=== PATIENT | male | born 1955 | race Caucasian/White ===

== ENCOUNTER 2016-07-26 11:23 | Inpatient (IN) | payer OTHER ==
[~2016-07-26] VITALS: Ht 175.3 cm; Wt 62.3 kg
[2016-07-26] VITALS (9 sets, daily range): BP systolic 94–161; BP diastolic 66–82; PULSE 84–116; RESP 18–20; TEMP 97–98; O2SAT 92–100
[~2016-07-26 11:23] MED LIST: CLON.2 PO; CORE25TA PO; CREON PO; LANTUSP SQ; LISI-586 PO; LOVA20TA PO; OMEP20CA5 PO; TAB-TAB PO; [UNRECOGNIZED DRUG - OTHER] SUBD
[2016-07-26] MEDS ORDERED: SODIUM CHLOR 0.9% 1000 ML INJ 1,000 ML IV SCH (11:43)
[2016-07-26] MEDS ORDERED: ONDANSETRON HCL 4 MG/2 ML VIAL IVP ONE (11:45)
--- NOTE | 2016-07-26 11:48 | PD ---
HPI Chief Complaint: GI Complaint Time Seen by Provider: 11:44 Travel History International Travel<30 days: No Contact w/Intl Traveler<30days: No Traveled to known affect area: No History of Present Illness HPI 61-year-old male presents to the emergency department for evaluation of nausea, vomiting, abdominal pain for 3 days. 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 He also states that part of his diaphragm is removed and reconstructed. He says is due to chronic pancreatitis. Patient reports epigastric and right upper quadrant pain at this time. He states this occurred last week and, per resolved after 1 day. He states he is unable take any of his medications. Patient denies any chest pain or shortness of breath. He does have a history of pneumothorax in January. Patient denies any diarrhea or constipation. Denies any blood in his stool. Denies any dark tarry stools. PFSH Past Medical History Arthritis: No Asthma: No Blood Disorders: No Heart Rhythm Problems: No Cancer: No Cardiac Catheterization: Yes Cardiovascular Problems: Yes (chf) High Cholesterol: No Chemotherapy: No Chest Pain: No Congestive Heart Failure: Yes (SEPTEMBER 2006) COPD: No Cerebrovascular Accident: No Diabetes: Yes Patient Takes Glucophage: No Diminished Hearing: No Endocrine: Yes Gastrointestinal Disorders: Yes (PEPTIC ULCER 1998) GERD: No Genitourinary: No Headaches: No Hepatitis: No Hiatal Hernia: No Hypertension: Yes Immune Disorder: No Kidney Stones: No Medical other: No Musculoskeletal: No Neurologic: No Psychiatric: No Reproductive: No Respiratory: No Immunizations Current: No Migraines: No Myocardial Infarction: No Pancreatitis: Yes Radiation Therapy: No Renal Failure: No Seizures: No Sleep Apnea: No Thyroid Disease: No Ulcer: Yes (1998) Past Surgical History Abdominal Surgery: Yes (TRIPLE ABD. HERNIA SURGERY WITH SCREEN 2007) AICD: No Appendectomy: No Cardiac Surgery: Yes (HEART CATH 2005) Cholecystectomy: No Ear Surgery: No Endocrine Surgery: No Eye Surgery: No Genitourinary Surgery: No Gynecologic Surgery: No Joint Replacement: No Neurologic Surgery: No Oral Surgery: Yes (TONSIL WHEN CHILD) Pacemaker: No Thoracic Surgery: No Tonsillectomy: Yes Other Surgery: Yes Social History Alcohol Use: Yes Tobacco Use: Yes (1 PPD) Substance Use: No Allergies-Medications (Allergen,Severity, Reaction): Coded Allergies: Penicillin (Verified Allergy, Severe, Hives, 07/26/16) Reported Meds & Prescriptions Reported Meds & Active Scripts Active Reported [Eucenicea] Vitamin B-1 (Thiamine HCl) 50 Mg Tab 50 Mg PO DAILY Vitamin C (Ascorbic Acid) 500 Mg Cap 500 Mg PO DAILY Multivitamin Adults (Multiple Vitamins W/ Minerals) 1 Tab 1 Tab PO DAILY Carvedilol 3.125 Mg Tab 3.125 Mg PO BID Creon (Amylase/Lipase/Protease) 24,000-76,000-120,000 Units Cap 1 Cap PO TIDPC Lisinopril-Hctz 20-12.5 Mg Tab 1 Tab PO DAILY Lovastatin 10 Mg Tab 10 Mg PO DAILY Review of Systems Except as stated in HPI: all other systems reviewed are Neg Physical Exam Narrative GENERAL: Well-developed well-nourished male patient, afebrile SKIN: Warm and dry. HEAD: Normocephalic. Atraumatic. EYES: No scleral icterus. No injection or drainage. NECK: Supple, trachea midline. No JVD or lymphadenopathy. CARDIOVASCULAR: Regular rate and rhythm without murmurs, gallops, or rubs. RESPIRATORY: Breath sounds equal bilaterally. No accessory muscle use. Lungs sounds clear to auscultation. GASTROINTESTINAL: Abdomen soft and nondistended. Patient has tenderness over RUQ, epigastric areas. MUSCULOSKELETAL: No cyanosis, or edema. BACK: Nontender without obvious deformity. No CVA tenderness. Data Data Last Documented VS Vital Signs Date Time Temp Pulse Resp B/P Pulse Ox O2 Delivery O2 Flow Rate FiO2 07/26/16 13:00 84 19 161/75 95 Room Air 07/26/16 12:10 2 07/26/16 11:26 98.0 Orders Complete Blood Count With Diff (07/26/16 11:43) Comprehensive Metabolic Panel (07/26/16 11:43) Lipase (07/26/16 11:43) Urinalysis - C+S If Indicated (07/26/16 11:43) Ct Abd/Pel W Iv Contrast(Rout) (07/26/16 11:43) Iv Access Insert/Monitor (07/26/16 11:43) Ecg Monitoring (07/26/16 11:43) Oximetry (07/26/16 11:43) Ondansetron Inj (Zofran Inj) (07/26/16 11:45) Sodium Chlor 0.9% 1000 Ml Inj (Ns 1000 M (07/26/16 11:43) Sodium Chloride 0.9% Flush (Ns Flush) (07/26/16 11:45) Chest, Single Ap (07/26/16 11:43) Blood Culture (07/26/16 12:39) Lactic Acid Sepsis Protocol (07/26/16 12:39) Vancomycin Inj (Vancomycin Inj) (07/26/16 12:39) Aztreonam Inj (Azactam Inj) (07/26/16 12:39) Metronidazole 500 Mg Inj (Flagyl 500 Mg (07/26/16 12:39) Sodium Chlor 0.9% 1000 Ml Inj (Ns 1000 M (07/26/16 12:45) Diphenhydramine Inj (Benadryl Inj) (07/26/16 13:00) Piperacil-Tazo 4.5 Gm Premix (Zosyn 4.5 (07/26/16 13:00) Metoclopramide Inj (Reglan Inj) (07/26/16 13:00) Morphine Inj (Morphine Inj) (07/26/16 13:00) Iohexol 350 Inj (Omnipaque 350 Inj) (07/26/16 13:21) Admit Order (Ed Use Only) (07/26/16 13:54) Consult Gastroenterology (07/26/16 ) Labs Laboratory Tests Test 07/26/16 07/26/16 07/26/16 12:09 13:15 13:25 White Blood Count 20.8 TH/MM3 Red Blood Count 3.84 MIL/MM3 Hemoglobin 12.4 GM/DL Hematocrit 37.0 % Mean Corpuscular Volume 96.5 FL Mean Corpuscular Hemoglobin 32.3 PG Mean Corpuscular Hemoglobin 33.4 % Concent Red Cell Distribution Width 13.8 % Platelet Count 256 TH/MM3 Mean Platelet Volume 9.3 FL Neutrophils (%) (Auto) 79.4 % Lymphocytes (%) (Auto) 6.7 % Monocytes (%) (Auto) 13.4 % Eosinophils (%) (Auto) 0.1 % Basophils (%) (Auto) 0.4 % Neutrophils # (Auto) 16.5 TH/MM3 Lymphocytes # (Auto) 1.4 TH/MM3 Monocytes # (Auto) 2.8 TH/MM3 Eosinophils # (Auto) 0.0 TH/MM3 Basophils # (Auto) 0.1 TH/MM3 CBC Comment AUTO DIFF Differential Comment AUTO DIFF CONFIRMED Sodium Level 125 MEQ/L Potassium Level 4.4 MEQ/L Chloride Level 86 MEQ/L Carbon Dioxide Level 27.9 MEQ/L Anion Gap 11 MEQ/L Blood Urea Nitrogen 26 MG/DL Creatinine 0.89 MG/DL Estimat Glomerular Filtration 87 ML/MIN Rate Random Glucose 172 MG/DL Calcium Level 8.9 MG/DL Total Bilirubin 0.5 MG/DL Aspartate Amino Transf 14 U/L (AST/SGOT) Alanine Aminotransferase 14 U/L (ALT/SGPT) Alkaline Phosphatase 132 U/L Total Protein 7.0 GM/DL Albumin 3.3 GM/DL Lipase 40 U/L Urine Color YELLOW Urine Turbidity CLEAR Urine pH 6.0 Urine Specific [place] 1.019 Urine Protein NEG mg/dL Urine Glucose (UA) NEG mg/dL Urine Ketones 40 mg/dL Urine Occult Blood NEG Urine Nitrite NEG Urine Bilirubin NEG Urine Urobilinogen 2.0 MG/DL Urine Leukocyte Esterase NEG Urine RBC LESS THAN 1 /hpf Urine Hyaline Casts 7 /lpf Urine Mucus FEW /lpf Microscopic Urinalysis Comment CULT NOT INDICATED Lactic Acid Level 1.2 mmol/L MDM Medical Decision Making Medical Screen Exam Complete: Yes Emergency Medical Condition: Yes Medical Record Reviewed: Yes Interpretation(s) Last Impressions Chest X-Ray 07/26/16 1143 Signed Impressions: Service Date/Time: Tuesday, July 26, 2016 12:07 - CONCLUSION: No acute disease. Gage Mcclain MD Abdomen/Pelvis CT 07/26/16 1143 Signed Impressions: Service Date/Time: Tuesday, July 26, 2016 13:14 - CONCLUSION: 1. Extensive postsurgical changes to the upper abdomen. 2. The stomach is abnormal with abnormal gastric wall thickening seen circumferentially with proximal gastric distention. Adjacent stranding and fluid suggest inflammatory process however malignancy is not excluded. 3. Atherosclerotic disease and mild ectasia of the infrarenal abdominal aorta. 4. Esophageal wall thickening seen circumferentially. Gage Mcclain MD Differential Diagnosis Pancreatitis versus diverticulitis versus bowel obstruction versus pneumothorax versus gastroenteritis Narrative Course 61-year-old male presents to the emergency department for evaluation of abdominal pain, vomiting for 3 days. EKG, chest x-ray ordered and pending. CBC , CMP, lipase are ordered and pending. CT abdomen/pelvis is ordered and pending. EKG shows SR, HR 90. CXR shows no acute disease. CBC shows leukocytosis 20.8, neutrophilia of 79.4%. CMP shows hyponatremia 125, glucose 172, alkaline phosphatase 132. Lipase is 40. UA is negative for acute infection. CT abdomen /pelvis shows 1. Extensive postsurgical changes to the upper abdomen. 2. The stomach is abnormal with abnormal gastric wall thickening seen circumferentially with proximal gastric distention. Adjacent stranding and fluid suggest inflammatory process however malignancy is not excluded. 3. Atherosclerotic disease and mild ectasia of the infrarenal abdominal aorta. 4. Esophageal wall thickening seen circumferentially. Due to elevated WBC of 20.8, blood cultures 2 and lactic acid are ordered. Patient reports PCN allergy was a rash as a child. Patient is given Benadryl 50 mg IV and Zosyn 4.5 gm IV. Gen. surgery and [facility] is paged for admission. Dr. Rose spoke to Dr. Jacinto who accepted admission. Dr. Rose also spoke with Dr. Serrano and GI. Sepsis Criteria SIRS Criteria (2 or more): Heart rate over 90, WBC > 26829, < 4000 or > 10% bands Sepsis Criteria (SIRS+source): Infect source susp/known Diagnosis Primary Impression: Sepsis Qualified Code: A41.9 - Sepsis, due to unspecified organism Additional Impression: Abdominal pain Qualified Code: R10.10 - Pain of upper abdomen Admitting Information Admitting Physician Requests: Admit Gin Noriega Jul 26, 2016 11:48
[2016-07-26] MEDS ORDERED: LISI20TA PO (12:16)
[2016-07-26] MEDS ORDERED: VITA50TA PO (12:16)
[2016-07-26] MEDS ORDERED: LISI10TA PO (12:16)
[2016-07-26] MEDS ORDERED: CREON24 PO (12:16)
[2016-07-26] MEDS ORDERED: MULT1TAB84 PO (12:16)
[2016-07-26] MEDS ORDERED: [UNRECOGNIZED DRUG - OTHER] (12:16)
[2016-07-26] MEDS ORDERED: LOVA10TA PO (12:16)
[2016-07-26] MEDS ORDERED: ASCO500C PO (12:16)
[2016-07-26] MEDS ORDERED: CARV3.12 PO (12:16)
[2016-07-26] MEDS ORDERED: AMLO5TAB2 PO (12:16)
--- NOTE | 2016-07-26 12:26 | RADRPT ---
EXAM DATE/TIME: 07/26/2016 12:07 [facility] COMPARISON: CHEST SINGLE AP, December 29, 2013, 14:32. INDICATIONS : Chest Pain MEDICAL HISTORY : None. SURGICAL HISTORY : None. ENCOUNTER: Initial ACUITY: 3 days PAIN SCORE: 5/10 LOCATION: Bilateral chest FINDINGS: Hyperinflation again seen. No consolidation or effusion. Borderline cardiomegaly. Osseous structures are intact. CONCLUSION: No acute disease. Gage Mcclain MD on July 26, 2016 at 12:23 Board Certified Radiologist. This report was verified electronically.
[2016-07-26 12:28] LABS: AUTOMATED NEUTROPHIL # 16.5 TH/MM3 (1.8-7.7); BASOPHIL # 0.1 TH/MM3 (0-0.2); BASOPHIL % 0.4 % (0.0-2.0); EOSINOPHIL % 0.1 % (0.0-4.0); LYMPH % 6.7 % (9.0-44.0); LYMPHOCYTE # 1.4 TH/MM3 (1.0-4.8); MEAN CELL VOLUME 96.5 FL (80.0-100.0); MEAN CORPUSCULAR HEMOGLOBIN 32.3 PG (27.0-34.0); MEAN CORPUSCULAR HGB CONC 33.4 % (32.0-36.0); MONO % 13.4 % (0.0-8.0); NEUT % 79.4 % (16.0-70.0); PLATELET COUNT 256 TH/MM3 (150-450); RED BLOOD COUNT 3.84 MIL/MM3 (4.50-5.90); RED CELL DISTRIBUTION WIDTH 13.8 % (11.6-17.2); WHITE BLOOD COUNT 20.8 TH/MM3 (4.0-11.0)
[2016-07-26 12:36] LABS: HEMO FLAGS AUTO DIFF
[2016-07-26] MEDS ORDERED: VANCOMYCIN INJ 1,000 MG in SODIUM CHLOR 0.9% 250 ML INJ 250 ML IV STA (12:39)
[2016-07-26] MEDS ORDERED: AZTREONAM INJ 2,000 MG in SODIUM CHLORIDE 0.9% INJ 100 ML IV STA (12:39)
[2016-07-26] MEDS ORDERED: metroNIDAZOLE 500 MG INJ 100 ML IV STA (12:39)
[2016-07-26] MEDS ORDERED: SODIUM CHLOR 0.9% 1000 ML INJ 1,000 ML IV ONE (12:45)
[2016-07-26 12:51] LABS: ALT (GPT) 14 U/L (12-78); ANION GAP 11 MEQ/L (5-15); AST (GOT) 14 U/L (15-37); BICARBONATE 27.9 MEQ/L (21.0-32.0); BLOOD UREA NITROGEN 26 MG/DL (7-18); CHLORIDE 86 MEQ/L (98-107); GLOMERULAR FILTRATION RATE 87 ML/MIN (>89); POTASSIUM 4.4 MEQ/L (3.5-5.1); SODIUM (NA) 125 MEQ/L (136-145)
[2016-07-26 12:53] LABS: ALKALINE PHOSPHATASE 132 U/L (45-117); TOTAL BILIRUBIN ADULT 0.5 MG/DL (0.2-1.0)
[2016-07-26] MEDS ORDERED: PIPERACIL-TAZO 4.5 GM PREMIX 100 ML IV ONE (13:00)
[2016-07-26] MEDS ORDERED: METOCLOPRAMIDE HCL 10 MG/2 ML VIAL IVP ONE (13:00)
[2016-07-26] MEDS ORDERED: diphenhydrAMINE HCL 50 MG/ML VIAL IV PUSH ONE (13:00)
[2016-07-26] MEDS ORDERED: MORPHINE SULFATE 4 MG/ML INJ IV PUSH ONE (13:00)
[2016-07-26] MEDS ORDERED: IOHEXOL 350 MG/ML 10 ML VIAL (for RAD DIAG) IV ONE (13:21)
[2016-07-26 13:29] LABS: BLOOD, URINE NEG (NEG); COMMENT (UR) CULT NOT INDICATED; CULTURE IF INDICATED CULT NOT INDICATED; GLUCOSE,URINE NEG (NEG); HYALINE CAST, URINE 7 /lpf (RARE); KETONE, URINE 40 mg/dL (NEG); MUCUS URINE FEW /lpf (OCC); NITRITE,URINE NEG (NEG); URINE COLOR YELLOW (YELLW/STRAW)
--- NOTE | 2016-07-26 13:31 | RADRPT ---
EXAM DATE/TIME: 07/26/2016 13:14 [facility] COMPARISON: CT ABDOMEN & PELVIS W CONTRAST, September 27, 2009, 16:25. INDICATIONS : Right upper quadrant and epigastric pain. Nausea and vomiting x 3 days. IV CONTRAST: 85 cc Omnipaque 350 (iohexol) IV ORAL CONTRAST: No oral contrast ingested. RADIATION DOSE: 9.96 CTDIvol (mGy) MEDICAL HISTORY : Diabetes mellitus type 2. Pancreatitis. Congestive heart failure.Hypertension. SURGICAL HISTORY : Splenectomy. Cholecystectomy.Umbilical hernia repair.Partial pancreas removed. ENCOUNTER: Initial ACUITY: 3 days PAIN SCALE: 5/10 LOCATION: Right upper quadrant TECHNIQUE: Volumetric scanning of the abdomen and pelvis was performed. Using automated exposure control and ad justment of the mA and/or kV according to patient size, radiation dose was kept as low as reasonably achievable to obtain optimal diagnostic quality images. FINDINGS: Patient is status post splenectomy, cholecystectomy, partial pancreatectomy, ventral hernia repair. U rinary bladder and prostate are unremarkable. There are no signs of bowel obstruction. There is mild distention of the stomach identified. Extensive atherosclerotic calcifications of the aorta and iliac vessels are noted. There is ectasia of the infrarenal abdominal aorta measuring up to 2.9 cm on axia l image 42. There is no adenopathy. There is circumferential thickening of the visualized portions of the distal thoracic esophagus, and postsurgical changes to the stomach are noted with surgical clips . There is moderate distal gastric wall thickening identified best seen on axial image #33 in the ant ral region which may be related to gastritis however a mass is difficult to exclude. Adjacent subcent imeter perigastric lymph nodes. CONCLUSION: 1. Extensive postsurgical changes to the upper abdomen. 2. The stomach is abnormal with abnormal gastric wall thickening seen circumferentially with proximal gastric distention. Adjacent stranding and fluid suggest inflammatory process however malignancy is not excluded. 3. Atherosclerotic disease and mild ectasia of the infrarenal abdominal aorta. 4. Esophageal wall thickening seen circumferentially. Gage Mcclain MD on July 26, 2016 at 13:26 Board Certified Radiologist. This report was verified electronically.
[2016-07-26] MEDS: SODIUM CHLORIDE 0.9% FLUSH 5 ML FLUSH IVF PRN (13:36)
[2016-07-26 13:39] LABS: SCAN/DIFF AUTO DIFF CONFIRMED
--- NOTE | 2016-07-26 14:00 | PD ---
Data Data Last Documented VS Vital Signs Date Time Temp Pulse Resp B/P Pulse Ox O2 Delivery O2 Flow Rate FiO2 07/26/16 13:00 84 19 161/75 95 Room Air 07/26/16 12:10 2 07/26/16 11:26 98.0 Orders Complete Blood Count With Diff (07/26/16 11:43) Comprehensive Metabolic Panel (07/26/16 11:43) Lipase (07/26/16 11:43) Urinalysis - C+S If Indicated (07/26/16 11:43) Ct Abd/Pel W Iv Contrast(Rout) (07/26/16 11:43) Iv Access Insert/Monitor (07/26/16 11:43) Ecg Monitoring (07/26/16 11:43) Oximetry (07/26/16 11:43) Ondansetron Inj (Zofran Inj) (07/26/16 11:45) Sodium Chlor 0.9% 1000 Ml Inj (Ns 1000 M (07/26/16 11:43) Sodium Chloride 0.9% Flush (Ns Flush) (07/26/16 11:45) Electrocardiogram (07/26/16 11:43) Chest, Single Ap (07/26/16 11:43) Blood Culture (07/26/16 12:39) Lactic Acid Sepsis Protocol (07/26/16 12:39) Vancomycin Inj (Vancomycin Inj) (07/26/16 12:39) Aztreonam Inj (Azactam Inj) (07/26/16 12:39) Metronidazole 500 Mg Inj (Flagyl 500 Mg (07/26/16 12:39) Sodium Chlor 0.9% 1000 Ml Inj (Ns 1000 M (07/26/16 12:45) Diphenhydramine Inj (Benadryl Inj) (07/26/16 13:00) Piperacil-Tazo 4.5 Gm Premix (Zosyn 4.5 (07/26/16 13:00) Metoclopramide Inj (Reglan Inj) (07/26/16 13:00) Morphine Inj (Morphine Inj) (07/26/16 13:00) Iohexol 350 Inj (Omnipaque 350 Inj) (07/26/16 13:21) Admit Order (Ed Use Only) (07/26/16 13:54) Consult Gastroenterology (07/26/16 ) Labs Laboratory Tests Test 07/26/16 07/26/16 07/26/16 12:09 13:15 13:25 White Blood Count 20.8 TH/MM3 Red Blood Count 3.84 MIL/MM3 Hemoglobin 12.4 GM/DL Hematocrit 37.0 % Mean Corpuscular Volume 96.5 FL Mean Corpuscular Hemoglobin 32.3 PG Mean Corpuscular Hemoglobin 33.4 % Concent Red Cell Distribution Width 13.8 % Platelet Count 256 TH/MM3 Mean Platelet Volume 9.3 FL Neutrophils (%) (Auto) 79.4 % Lymphocytes (%) (Auto) 6.7 % Monocytes (%) (Auto) 13.4 % Eosinophils (%) (Auto) 0.1 % Basophils (%) (Auto) 0.4 % Neutrophils # (Auto) 16.5 TH/MM3 Lymphocytes # (Auto) 1.4 TH/MM3 Monocytes # (Auto) 2.8 TH/MM3 Eosinophils # (Auto) 0.0 TH/MM3 Basophils # (Auto) 0.1 TH/MM3 CBC Comment AUTO DIFF Differential Comment AUTO DIFF CONFIRMED Sodium Level 125 MEQ/L Potassium Level 4.4 MEQ/L Chloride Level 86 MEQ/L Carbon Dioxide Level 27.9 MEQ/L Anion Gap 11 MEQ/L Blood Urea Nitrogen 26 MG/DL Creatinine 0.89 MG/DL Estimat Glomerular Filtration 87 ML/MIN Rate Random Glucose 172 MG/DL Calcium Level 8.9 MG/DL Total Bilirubin 0.5 MG/DL Aspartate Amino Transf 14 U/L (AST/SGOT) Alanine Aminotransferase 14 U/L (ALT/SGPT) Alkaline Phosphatase 132 U/L Total Protein 7.0 GM/DL Albumin 3.3 GM/DL Lipase 40 U/L Urine Color YELLOW Urine Turbidity CLEAR Urine pH 6.0 Urine Specific [place] 1.019 Urine Protein NEG mg/dL Urine Glucose (UA) NEG mg/dL Urine Ketones 40 mg/dL Urine Occult Blood NEG Urine Nitrite NEG Urine Bilirubin NEG Urine Urobilinogen 2.0 MG/DL Urine Leukocyte Esterase NEG Urine RBC LESS THAN 1 /hpf Urine Hyaline Casts 7 /lpf Urine Mucus FEW /lpf Microscopic Urinalysis Comment CULT NOT INDICATED Lactic Acid Level 1.2 mmol/L MDM Supervised Visit with FRANK: Yes Narrative Course I, Dr. Rose, have reviewed the advance practice practioner's documentation and am in agreement, met with the patient face to face, made the diagnosis, and the medical decision making was done by me. *My assessment and Findings: 61-year-old male with history accompanied. Past medical history with multiple abdominal surgeries here with complaint of 3 days of abdominal pain, primarily epigastric. Associated nausea, vomiting. Nonbloody and nonbilious. Patient states that the symptoms initially seemed similar to heartburn, but have progressively worsened over the last several days. States it feels similar to his previous episodes of pancreatitis. No fevers or chills. On abdominal examination patient has mild to moderate epigastric tenderness to palpation without rebound or guarding. Well-healed old surgical scars. Differential includes gastritis, pancreatitis, hepatobiliary pathology, bowel obstruction, intra-abdominal abscess. Laboratory workup notable for leukocytosis. LFTs and lipase were fairly unremarkable. CT of the abdomen and pelvis shows circumferential wall thickening of the esophagus, stomach without obvious abscess, mass. Differential includes inflammation versus malignancy. I spoke with Dr. Kelly will admit patient for further management. He was given dose of Zosyn here in the emergency department despite a report a penicillin allergy. Patient states that he ate hives as a child but has not had any penicillin since. I spoke with Dr. tran of surgery to confirm no surgical needs and he agrees GI, Dr. Dickens, was consulted for biopsy. Critical Care Narrative Aggregate critical care time was 35 minutes. Time to perform other separately billable procedures was not included in the critical care time. My time did not include minutes spent treating any other patients simultaneously or on activities that did not directly contribute to the patient's treatment. The services I provided to this patient were to treat and/or prevent clinically significant deterioration that could result in: Sepsis, malignancy versus inflammation, cardiopulmonary decompensation, , disability I provided critical care services requiring my management, as noted below: Chart data review, documentation time, medication orders and management, vital sign assessments/reviewing monitor data, ordering and reviewing lab tests, ordering and interpreting/reviewing x-rays and diagnostic studies, care of the patient and discussion of the patient with the admitting physicians. Emily Rose MD Jul 26, 2016 14:00
--- NOTE | 2016-07-26 14:00 | HHI.HP ---
HPI Service [facility] Hospitalists Primary Care Physician Shawn Schmitz MD Admission Diagnosis abdominal source sepsis, gastric wall thickening Chief Complaint: vomiting Travel History International Travel<30 Days: No Contact w/Intl Traveler <30 Da: No Traveled to Known Affected Are: No History of Present Illness Pt is 61 yo with hx chronic pancreatitis, pseudocysts complicated requiring partial pancreatiectomy, gastrectomy, cholecystectomy, splenectomy, and diaphragm repair. Pt still drinks daily etoh. On Jul 19 after eating developed alot of epigastric pain/distention with n/v with brown emesis. Last bm 4 or 5 days ago and little flatus. He presents dehydrated with hyponatremia and sinus tachycardia. CT imaging shows circumferentially thickened esophagus and thick walled stomach fluid around stomach and distention with fluid level in stomach.....?partial obstruction. ?progressive GOO change. Radiology not able to r/o tumor of upper gastrointestinal tract. His wbc is 20K. Review of Systems Other n/v. epigastric pain. no bm Past Family Social History Past Medical History hx chronic pancreatitis. pseudocysts which apparently were severe and required splenectomy, "3/4 resection of pancreas, partial gastrectomy, cholecystectomy, diaphragm resection. dm. insulin dep htn hyperlipidemia severe dilated nonischemic cardiomyopathy with EF 15% prior umbilical/ventral hernia repair with mesh hx benign lung mass bx with ptx Reported Medications [Eucenicea] Vitamin B-1 (Thiamine HCl) 50 Mg Tab 50 Mg PO DAILY Vitamin C (Ascorbic Acid) 500 Mg Cap 500 Mg PO DAILY Multivitamin Adults (Multiple Vitamins W/ Minerals) 1 Tab 1 Tab PO DAILY Carvedilol 3.125 Mg Tab 3.125 Mg PO BID Creon (Amylase/Lipase/Protease) 24,000-76,000-120,000 Units Cap 1 Cap PO TIDPC Lisinopril-Hctz 20-12.5 Mg Tab 1 Tab PO DAILY Lovastatin 10 Mg Tab 10 Mg PO DAILY lantus u-100 in AM by sliding scale recently started on what sounds like gababentin unknown dose for neuropathy. Allergies: Coded Allergies: Penicillin (Verified Allergy, Severe, Hives, 07/26/16) Family History nc Social History 2 cocktails per day. hx etoh abuse 1ppd at least . started at age 17 Physical Exam Vital Signs heent neg heart reg/tachy lung cta abd mid abdomen distention near prior surgical site. bs. mid abdomen tenderness ext no edema Vital Signs Date Time Temp Pulse Resp B/P Pulse Ox O2 Delivery O2 Flow Rate FiO2 07/26/16 12:10 97 Nasal Cannula 2 07/26/16 11:38 18 07/26/16 11:26 98.0 104 20 131/80 100 Room Air Laboratory Laboratory Tests Test 07/26/16 07/26/16 12:09 13:15 White Blood Count 20.8 Red Blood Count 3.84 Hemoglobin 12.4 Hematocrit 37.0 Mean Corpuscular Volume 96.5 Mean Corpuscular Hemoglobin 32.3 Mean Corpuscular Hemoglobin 33.4 Concent Red Cell Distribution Width 13.8 Platelet Count 256 Mean Platelet Volume 9.3 Neutrophils (%) (Auto) 79.4 Lymphocytes (%) (Auto) 6.7 Monocytes (%) (Auto) 13.4 Eosinophils (%) (Auto) 0.1 Basophils (%) (Auto) 0.4 Neutrophils # (Auto) 16.5 Lymphocytes # (Auto) 1.4 Monocytes # (Auto) 2.8 Eosinophils # (Auto) 0.0 Basophils # (Auto) 0.1 CBC Comment AUTO DIFF Differential Comment AUTO DIFF CONFIRMED Sodium Level 125 Potassium Level 4.4 Chloride Level 86 Carbon Dioxide Level 27.9 Anion Gap 11 Blood Urea Nitrogen 26 Creatinine 0.89 Estimat Glomerular Filtration 87 Rate Random Glucose 172 Calcium Level 8.9 Total Bilirubin 0.5 Aspartate Amino Transf 14 (AST/SGOT) Alanine Aminotransferase 14 (ALT/SGPT) Alkaline Phosphatase 132 Total Protein 7.0 Albumin 3.3 Lipase 40 Urine Color YELLOW Urine Turbidity CLEAR Urine pH 6.0 Urine Specific [place] 1.019 Urine Protein NEG Urine Glucose (UA) NEG Urine Ketones 40 Urine Occult Blood NEG Urine Nitrite NEG Urine Bilirubin NEG Urine Urobilinogen 2.0 Urine Leukocyte Esterase NEG Urine RBC LESS THAN 1 Urine Hyaline Casts 7 Urine Mucus FEW Microscopic Urinalysis Comment CULT NOT INDICATED Date/Time Procedure Status Source Growth 07/26/16 13:30 Aerobic Blood Culture Received Blood Peripheral Pending 07/26/16 13:30 Anaerobic Blood Culture Received Blood Peripheral Pending Result Diagram: 07/26/16 1209 07/26/16 1209 Assessment and Plan Problem List: (1) Abdominal pain Status: Acute Plan: Pt is 61 yo with hx chronic pancreatitis, pseudocysts complicated requiring partial pancreatiectomy, gastrectomy, cholecystectomy, splenectomy, and diaphragm repair. Pt still drinks daily etoh. On Jul 19 after eating developed alot of epigastric pain/distention with n/v with brown emesis. Last bm 4 or 5 days ago and little flatus. He presents dehydrated with hyponatremia and sinus tachycardia. CT imaging shows circumferentially thickened esophagus and thick walled stomach fluid around stomach and distention with fluid level in stomach.....?partial obstruction. ?progressive GOO change. Radiology not able to r/o tumor of upper gastrointestinal tract. His wbc is 20K. ED discussed with gen surg and no acute indication for surgery. consult GI to assist ?ngt if persistent n/v. discussed with GI and ok to place ngt. gentle ivf given hx chf prn antiemetics iv ppi npo for now (2) N&V (nausea and vomiting) Status: Acute Plan: see above (3) Chronic pancreatitis Status: Chronic Plan: see above (4) HTN (hypertension) Status: Acute (5) Diabetes Status: Acute (6) Hyponatremia Status: Acute (7) CHF (congestive heart failure) Status: Acute Physician Certification 2 Midnight Certification Type: Admission for Inpatient Services Order for Inpatient Services 3The services are ordered in accordance with Medicare regulations or non- Medicare payer requirements, as applicable. In the case of services not specified as inpatient-only, they are appropriately provided as inpatient services in accordance with the 2-midnight benchmark. Estimated LOS (days): 3 3 days is the estimated time the patient will need to remain in the hospital, assuming treatment plan goals are met and no additional complications. Post-Hospital Plan: Home Problem Qualifiers (1) Abdominal pain: Qualified Code: R10.10 - Pain of upper abdomen (2) N&V (nausea and vomiting): Qualified Code: R11.2 - Nausea and vomiting, intractability of vomiting not specified, unspecified vomiting type (3) Chronic pancreatitis: Qualified Code: K86.1 - Chronic pancreatitis, unspecified pancreatitis type (4) HTN (hypertension): Qualified Code: I10 - Essential hypertension (5) Diabetes: Qualified Code: E11.8 - Type 2 diabetes mellitus with complication, without long-term current use of insulin Anselmo Jacinto MD Jul 26, 2016 14:00
[2016-07-26] MEDS ORDERED: ENALAPRILAT 1.25 MG/ML VIAL IV PUSH PRN (15:00)
[2016-07-26] MEDS: INSULIN ASPART SUPPLEMENTAL SCALE SQ SCH ×2 (16:00→19:51)
--- NOTE | 2016-07-26 16:14 | PD.CONS ---
HPI History of Present Illness This a 61-year-old male who presented to the emergency department for evaluation of nausea, vomiting, abdominal pain for 3 days. 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 He also states that part of his diaphragm is removed and reconstructed. He says was due to fluid filled sac that wrapped around his pancreas. Patient reports epigastric and right upper quadrant pain at this time. He states this occurred last week and, per resolved after 1 day. He states he is unable take any of his medications adnhas not been able to keep food down for 3 days. Patient denies any chest pain or shortness of breath. He does have a history of pneumothorax in January. Patient denies any diarrhea or constipation. Denies any blood in his stool. Denies any dark tarry stools. Last colonoscopy was about 5 years ago, had polyps removed, and last EGD was at least 20 years ago. He was found to have an abnormal CT abdomen/pelvis that showed 1. Extensive postsurgical changes to the upper abdomen. 2. The stomach is abnormal with abnormal gastric wall thickening seen circumferentially with proximal gastric distention. Adjacent stranding and fluid suggest inflammatory process however malignancy is not excluded. 3. Atherosclerotic disease and mild ectasia of the infrarenal abdominal aorta. 4. Esophageal wall thickening seen circumferentially.he is still having tenderness in the epigastric area and C/O nausea. Lipase level was 40. (July Sellers) PFSH Past Medical History CHF Peptic ulcer HTN ETOH Pancreatitis Past Surgical History Heart cath tonsilectomy Triple abdominal hernia repari 2/3 of pancreas removed Splenectomy part of diaphragm removed cholecystectomy (July Sellers) Coded Allergies: Penicillin (Verified Allergy, Severe, Hives, 07/26/16) Medications Reported Meds & Active Scripts Active Reported [Eucenicea] Vitamin B-1 (Thiamine HCl) 50 Mg Tab 50 Mg PO DAILY Vitamin C (Ascorbic Acid) 500 Mg Cap 500 Mg PO DAILY Multivitamin Adults (Multiple Vitamins W/ Minerals) 1 Tab 1 Tab PO DAILY Carvedilol 3.125 Mg Tab 3.125 Mg PO BID Creon (Amylase/Lipase/Protease) 24,000-76,000-120,000 Units Cap 1 Cap PO TIDPC Lisinopril-Hctz 20-12.5 Mg Tab 1 Tab PO DAILY Lovastatin 10 Mg Tab 10 Mg PO DAILY Family History Mother -emphysema Father dementia and melanoma Social History , drinks ETOH, smokes tobacco (July Sellers) Review of Systems Gastrointestinal: COMPLAINS OF: Abdominal pain, Nausea, Vomiting, Swelling of Abdomen, DENIES: Black stools, Bloody stools, Constipation, Diarrhea, Difficulty Swallowing (July Sellers) GI Exam Vitals I&O Vital Signs Date Time Temp Pulse Resp B/P Pulse Ox O2 Delivery O2 Flow Rate FiO2 07/26/16 14:00 96 18 155/77 94 Room Air 07/26/16 13:00 84 19 161/75 95 Room Air 07/26/16 12:10 97 Nasal Cannula 2 07/26/16 11:38 18 07/26/16 11:26 98.0 104 20 131/80 100 Room Air Imaging Last 24 hours Impressions Chest X-Ray 07/26/16 1143 Signed Impressions: Service Date/Time: Tuesday, July 26, 2016 12:07 - CONCLUSION: No acute disease. Gage Mcclain MD Abdomen/Pelvis CT 07/26/16 1143 Signed Impressions: Service Date/Time: Tuesday, July 26, 2016 13:14 - CONCLUSION: 1. Extensive postsurgical changes to the upper abdomen. 2. The stomach is abnormal with abnormal gastric wall thickening seen circumferentially with proximal gastric distention. Adjacent stranding and fluid suggest inflammatory process however malignancy is not excluded. 3. Atherosclerotic disease and mild ectasia of the infrarenal abdominal aorta. 4. Esophageal wall thickening seen circumferentially. Gage Mcclain MD Laboratory Test 07/26/16 07/26/16 07/26/16 12:09 13:15 13:25 White Blood Count 20.8 TH/MM3 Red Blood Count 3.84 MIL/MM3 Hemoglobin 12.4 GM/DL Hematocrit 37.0 % Mean Corpuscular Volume 96.5 FL Mean Corpuscular Hemoglobin 32.3 PG Mean Corpuscular Hemoglobin 33.4 % Concent Red Cell Distribution Width 13.8 % Platelet Count 256 TH/MM3 Mean Platelet Volume 9.3 FL Neutrophils (%) (Auto) 79.4 % Lymphocytes (%) (Auto) 6.7 % Monocytes (%) (Auto) 13.4 % Eosinophils (%) (Auto) 0.1 % Basophils (%) (Auto) 0.4 % Neutrophils # (Auto) 16.5 TH/MM3 Lymphocytes # (Auto) 1.4 TH/MM3 Monocytes # (Auto) 2.8 TH/MM3 Eosinophils # (Auto) 0.0 TH/MM3 Basophils # (Auto) 0.1 TH/MM3 CBC Comment AUTO DIFF Differential Comment AUTO DIFF CONFIRMED Sodium Level 125 MEQ/L Potassium Level 4.4 MEQ/L Chloride Level 86 MEQ/L Carbon Dioxide Level 27.9 MEQ/L Anion Gap 11 MEQ/L Blood Urea Nitrogen 26 MG/DL Creatinine 0.89 MG/DL Estimat Glomerular Filtration 87 ML/MIN Rate Random Glucose 172 MG/DL Calcium Level 8.9 MG/DL Total Bilirubin 0.5 MG/DL Aspartate Amino Transf 14 U/L (AST/SGOT) Alanine Aminotransferase 14 U/L (ALT/SGPT) Alkaline Phosphatase 132 U/L Total Protein 7.0 GM/DL Albumin 3.3 GM/DL Lipase 40 U/L Urine Color YELLOW Urine Turbidity CLEAR Urine pH 6.0 Urine Specific [place] 1.019 Urine Protein NEG mg/dL Urine Glucose (UA) NEG mg/dL Urine Ketones 40 mg/dL Urine Occult Blood NEG Urine Nitrite NEG Urine Bilirubin NEG Urine Urobilinogen 2.0 MG/DL Urine Leukocyte Esterase NEG Urine RBC LESS THAN 1 /hpf Urine Hyaline Casts 7 /lpf Urine Mucus FEW /lpf Microscopic Urinalysis Comment CULT NOT INDICATED Lactic Acid Level 1.2 mmol/L Date/Time Procedure Status Source Growth 07/26/16 13:30 Aerobic Blood Culture Received Blood Peripheral Pending 07/26/16 13:30 Anaerobic Blood Culture Received Blood Peripheral Pending Physical Examination HEENT: Pupils round and reactive to light; normocephalic; atraumatic; no jaundice. Throat is clear. NECK: Neck is supple, no JVD, no lymphadenopathy. CHEST: Chest is clear to auscultation and percussion. CARDIAC: Regular rate and rhythm with no murmur gallop or rubs. ABDOMEN: Soft,distended, tender epigastric area; no hepatosplenomegaly; bowel sounds are present in all four quadrants. EXTREMITIES: No clubbing, cyanosis, or edema. SKIN: Normal; no rash; no jaundice. CANDY MIXER: No focal deficits; alert and oriented times three. (July Sellers) Assessment and Plan Assessment: (1) Abdominal pain Plan: -Has C/O epigastric pain, RUQ and LUQ pain started one week ago, resolved and then returned 3 days ago,associated with N/V -Moderate tenderness in epigastric area on physical exam with abdominal distention - Had abnormal CT abdomen that showed-- 1. Extensive postsurgical changes to the upper abdomen. 2. The stomach is abnormal with abnormal gastric wall thickening seen circumferentially with proximal gastric distention. Adjacent stranding and fluid suggest inflammatory process however malignancy is not excluded. 3. Atherosclerotic disease and mild ectasia of the infrarenal abdominal aorta. 4. Esophageal wall thickening seen circumferentially. Has had multiple abdominal surgeries including hernia repair, cholecystectomy, 2/3 of pancreas removed, splenectomy, part of diaphragm removed. -For evaluation of the abnormal findings we will do an EGD, will need Bx done as well (2) N&V (nausea and vomiting) Plan: will have NG placed Continue NPO Anti-emetics PPI (3) Chronic pancreatitis Plan: Has chronic pancreatitis Lipase level is 40 Continue NPO IV fluids Follow labs (4) Sepsis Plan: white count elevated continue antibiotics Plan Plan -NPO/NG tube -IV fluids -Antiemetics -PPI -Pain management -Consent for EGD -EGD in am -Supportive care -Further recommendations to follow Patient was seen and examined by Dr. Dickens and myself , this note is written on his behalf. (July Sellers) Physician Comments Seen and examined, feeling much better after NG placement, will proceed with EGD for diagnostic purposes. (Ayse Dickens MD) Problem Qualifiers (1) Abdominal pain: Qualified Code: R10.10 - Pain of upper abdomen (2) N&V (nausea and vomiting): Qualified Code: R11.2 - Nausea and vomiting, intractability of vomiting not specified, unspecified vomiting type (3) Chronic pancreatitis: Qualified Code: K86.1 - Chronic pancreatitis, unspecified pancreatitis type (4) Sepsis: Qualified Code: A41.9 - Sepsis, due to unspecified organism July Sellers Jul 26, 2016 16:14 Ayse Dickens MD Jul 27, 2016 10:39
[2016-07-26] MEDS: SODIUM CHLOR 0.9% 1000 ML INJ 1,000 ML IV SCH (17:06)
[2016-07-26] MEDS: ONDANSETRON HCL 4 MG/2 ML VIAL IV PUSH PRN (18:18)
[2016-07-26] MEDS: MORPHINE SULFATE 4 MG/ML INJ IV PRN ×2 (18:27→22:18)
[2016-07-26] MEDS ORDERED: MORPHINE SULFATE 4 MG/ML INJ IV PRN (18:30)
[2016-07-26] MEDS: PANTOPRAZOLE SODIUM 40 MG VIAL IV PUSH SCH (19:46)
[2016-07-26] MEDS: CARVEDILOL 3.125 MG TAB PO SCH (19:46)
[2016-07-26] MEDS: LACTATED RINGER'S 1000 ML IV SCH (22:30)
[2016-07-27] VITALS (8 sets, daily range): BP systolic 105–135; BP diastolic 66–80; PULSE 98–120; RESP 16–20; TEMP 97.9–99.2; O2SAT 92–99
[2016-07-27] MEDS: INSULIN ASPART SUPPLEMENTAL SCALE SQ SCH ×6 (04:00→20:00)
[2016-07-27] MEDS: SODIUM CHLOR 0.9% 1000 ML INJ 1,000 ML IV SCH ×2 (04:02→18:07)
[2016-07-27] MEDS: ONDANSETRON HCL 4 MG/2 ML VIAL IV PUSH PRN (05:29)
[2016-07-27] MEDS: MORPHINE SULFATE 4 MG/ML INJ IV PRN ×2 (05:29→18:32)
[2016-07-27 05:46] LABS: AUTOMATED NEUTROPHIL # 13.3 TH/MM3 (1.8-7.7); BASOPHIL # 0.1 TH/MM3 (0-0.2); BASOPHIL % 0.3 % (0.0-2.0); EOSINOPHIL % 0.1 % (0.0-4.0); HEMATOCRIT 25.5 % (39.0-51.0); LYMPH % 13.7 % (9.0-44.0); LYMPHOCYTE # 2.6 TH/MM3 (1.0-4.8); MEAN CELL VOLUME 97.2 FL (80.0-100.0); MEAN CORPUSCULAR HGB CONC 33.9 % (32.0-36.0); MONO % 15.5 % (0.0-8.0); NEUT % 70.4 % (16.0-70.0); PLATELET COUNT 180 TH/MM3 (150-450); RED BLOOD COUNT 2.63 MIL/MM3 (4.50-5.90); RED CELL DISTRIBUTION WIDTH 13.6 % (11.6-17.2); WHITE BLOOD COUNT 18.9 TH/MM3 (4.0-11.0)
[2016-07-27 06:00] LABS: HEMO FLAGS AUTO DIFF
[2016-07-27 06:17] LABS: MAGNESIUM 1.4 MG/DL (1.5-2.5); POTASSIUM 4.2 MEQ/L (3.5-5.1)
[2016-07-27 07:06] LABS: ACANTHOCYTES OCC (NORMAL); PLATELET ESTIMATE SMEAR NORMAL (NORMAL); PLATELET MORPHOLOGY NORMAL (NORMAL); SCAN/DIFF AUTO DIFF CONFIRMED
[2016-07-27] MEDS: CARVEDILOL 3.125 MG TAB PO SCH ×2 (08:42→21:02)
[2016-07-27] MEDS: PANTOPRAZOLE SODIUM 40 MG VIAL IV PUSH SCH ×2 (08:42→21:02)
[2016-07-27] MEDS ORDERED: KETAMINE HCL 500 MG/5 ML VIAL ONE (14:53)
[2016-07-27] MEDS ORDERED: PROPOFOL 200 MG/20 ML AMP IV ONE (15:08)
[2016-07-27] MEDS ORDERED: MIDAZOLAM HCL 2 MG/2 ML VIAL ONE (15:54)
--- NOTE | 2016-07-27 16:55 | HHI.PR ---
Subjective Remarks No new complaints. Objective Vitals Vital Signs Date Time Temp Pulse Resp B/P Pulse Ox O2 Delivery O2 Flow Rate FiO2 07/27/16 16:15 92 20 132/76 95 Nasal Cannula 3 07/27/16 16:00 91 20 131/76 95 Nasal Cannula 3 07/27/16 15:45 103 20 109/72 96 Nasal Cannula 3 07/27/16 15:40 99.3 102 22 133/72 96 Nasal Cannula 3 07/27/16 12:00 98.8 103 20 127/68 92 07/27/16 08:00 98.1 104 20 105/69 95 07/27/16 05:34 18 07/27/16 04:00 99.2 107 18 121/66 96 07/27/16 00:00 98.2 107 18 135/78 95 07/26/16 20:21 103 07/26/16 20:00 97.0 116 18 94/66 95 07/26/16 18:01 97.6 91 18 145/80 92 07/26/16 17:00 116 20 135/82 94 Room Air 07/26/16 07/26/16 07/27/16 15:00 23:00 07:00 Intake Total 156 ml 601 ml Output Total 400 ml 350 ml 725 ml Balance -400 ml -194 ml -124 ml Intake Oral 0 ml 0 ml IV Total 156 ml 601 ml Output Urine Total 400 ml 250 ml 300 ml Gastric Drainage Total 100 ml 425 ml # Voids 1 # Bowel Movements 0 0 Result Diagram: 07/27/16 0511 07/27/16 0511 Imaging Last Impressions Chest X-Ray 07/26/16 1143 Signed Impressions: Service Date/Time: Tuesday, July 26, 2016 12:07 - CONCLUSION: No acute disease. Gage Mcclain MD Abdomen/Pelvis CT 07/26/16 1143 Signed Impressions: Service Date/Time: Tuesday, July 26, 2016 13:14 - CONCLUSION: 1. Extensive postsurgical changes to the upper abdomen. 2. The stomach is abnormal with abnormal gastric wall thickening seen circumferentially with proximal gastric distention. Adjacent stranding and fluid suggest inflammatory process however malignancy is not excluded. 3. Atherosclerotic disease and mild ectasia of the infrarenal abdominal aorta. 4. Esophageal wall thickening seen circumferentially. Gage Mcclain MD Objective Remarks GENERAL: This is a well-nourished, well-developed patient, in no apparent distress. CARDIOVASCULAR: Regular rate and rhythm without murmurs, gallops, or rubs. RESPIRATORY: wheezing at right lung base GASTROINTESTINAL: Abdomen soft, non-tender, nondistended. decreased bowel sounds x 4 MUSCULOSKELETAL: Extremities without clubbing, cyanosis, or edema. NEURO: Alert & Oriented x4 to person, place, time, situation. Moves all ext x4 A/P Problem List: (1) Abdominal pain Status: Acute Plan: Pt is 61 yo with hx chronic pancreatitis, pseudocysts complicated requiring partial pancreatiectomy, gastrectomy, cholecystectomy, splenectomy, and diaphragm repair. Pt still drinks daily etoh. On Jul 19 after eating developed alot of epigastric pain/distention with n/v with brown emesis. Last bm 4 or 5 days ago and little flatus. He presents dehydrated with hyponatremia and sinus tachycardia. CT imaging shows circumferentially thickened esophagus and thick walled stomach fluid around stomach and distention with fluid level in stomach.....?partial obstruction. ?progressive GOO change. Radiology not able to r/o tumor of upper gastrointestinal tract. His wbc is 20K. ED discussed with gen surg and no acute indication for surgery. - NGT - IVF - zofran - protonix - continue NPO for now - will d/w GI 07/28/16 - per verbal report EGD (07/27/16) --> multiple gastric ulcers, biopsies taken (2) N&V (nausea and vomiting) Status: Acute Plan: see above (3) Chronic pancreatitis Status: Chronic Plan: see above (4) HTN (hypertension) Status: Acute Plan: - stable - coreg (5) Diabetes Status: Acute Plan: - normoglycemic since admission - med rec sheet shows NO DM medications (6) Hyponatremia Status: Acute (7) CHF (congestive heart failure) Status: Acute Problem Qualifiers (1) Abdominal pain: Qualified Code: R10.10 - Pain of upper abdomen (2) N&V (nausea and vomiting): Qualified Code: R11.2 - Nausea and vomiting, intractability of vomiting not specified, unspecified vomiting type (3) Chronic pancreatitis: Qualified Code: K86.1 - Chronic pancreatitis, unspecified pancreatitis type (4) HTN (hypertension): Qualified Code: I10 - Essential hypertension (5) Diabetes: Qualified Code: E11.8 - Type 2 diabetes mellitus with complication, without long-term current use of insulin Yuniel Ramos DO Jul 27, 2016 16:55
--- NOTE | 2016-07-27 17:57 | EKG ---
Date Performed: 07/26/2016 Time Performed: 13:01:56 PTAGE: 61 years EKG: Sinus rhythm LOW QRS VOLTAGE IN EXTREMITY LEADS POSSIBLE RIGHT VENTRICULAR CONDUCTION DELAY POSSIBLE ANTERIOR ANGELINA CARDIAL INFARCTION Since PREVIOUS TRACING , no significant change noted ABNORMAL ECG INTERPRETATION BASED ON A DEF ROSALIE AGE OF 39 YEARS PREVIOUS TRACIN01/19/2009 20.23 DOCTOR: Tresa Edward Interpretating Date/Time 07/27/2016 17:55:49
[2016-07-27] MEDS: MAGNESIUM SULFATE 1 GM PREMIX 100 ML IV SCH ×2 (18:07→21:02)
[2016-07-27] MEDS: RESP: ALBUTEROL 2.5 MG/IPRATROPIUM 0.5 MG NEB (SCH) NEB (19:35)
[2016-07-27] MEDS: LACTATED RINGER'S 1000 ML IV SCH (21:03)
[2016-07-28] VITALS (8 sets, daily range): BP systolic 121–157; BP diastolic 67–75; PULSE 83–104; RESP 18–20; TEMP 97.4–98.4; O2SAT 95–100
[2016-07-28] MEDS: INSULIN ASPART SUPPLEMENTAL SCALE SQ SCH ×6 (03:34→19:57)
[2016-07-28 06:44] LABS: AUTOMATED NEUTROPHIL # 10.4 TH/MM3 (1.8-7.7); BASOPHIL # 0.1 TH/MM3 (0-0.2); BASOPHIL % 0.5 % (0.0-2.0); EOSINOPHIL # 0.3 TH/MM3 (0-0.4); EOSINOPHIL % 2.2 % (0.0-4.0); HEMATOCRIT 23.7 % (39.0-51.0); HEMO FLAGS DIFF FINAL; LYMPH % 11.9 % (9.0-44.0); LYMPHOCYTE # 1.7 TH/MM3 (1.0-4.8); MEAN CELL VOLUME 97.7 FL (80.0-100.0); MEAN CORPUSCULAR HEMOGLOBIN 32.4 PG (27.0-34.0); MEAN CORPUSCULAR HGB CONC 33.2 % (32.0-36.0); MONO % 13.9 % (0.0-8.0); NEUT % 71.5 % (16.0-70.0); PLATELET COUNT 167 TH/MM3 (150-450); RED BLOOD COUNT 2.42 MIL/MM3 (4.50-5.90); RED CELL DISTRIBUTION WIDTH 13.9 % (11.6-17.2); WHITE BLOOD COUNT 14.5 TH/MM3 (4.0-11.0)
[2016-07-28 07:05] LABS: ANION GAP 9 MEQ/L (5-15); BICARBONATE 27.4 MEQ/L (21.0-32.0); BLOOD UREA NITROGEN 22 MG/DL (7-18); CHLORIDE 99 MEQ/L (98-107); GLOMERULAR FILTRATION RATE 101 ML/MIN (>89); SODIUM (NA) 135 MEQ/L (136-145)
[2016-07-28] MEDS: ONDANSETRON HCL 4 MG/2 ML VIAL IV PUSH PRN (07:37)
[2016-07-28] MEDS: MORPHINE SULFATE 4 MG/ML INJ IV PRN (07:37)
[2016-07-28] MEDS: SODIUM CHLOR 0.9% 1000 ML INJ 1,000 ML IV SCH ×2 (07:38→19:57)
[2016-07-28] MEDS: SODIUM CHLORIDE 0.9% FLUSH 5 ML FLUSH IVF PRN (07:39)
[2016-07-28] MEDS: PANTOPRAZOLE SODIUM 40 MG VIAL IV PUSH SCH ×2 (08:00→19:57)
[2016-07-28] MEDS: RESP: ALBUTEROL 2.5 MG/IPRATROPIUM 0.5 MG NEB (SCH) NEB ×3 (08:19→20:10)
[2016-07-28] MEDS: CARVEDILOL 3.125 MG TAB PO SCH ×2 (09:00→19:57)
--- NOTE | 2016-07-28 09:30 | RADRPT ---
EXAM DATE/TIME: 07/28/2016 08:55 [facility] COMPARISON: CHEST SINGLE AP, July 26, 2016, 12:07. INDICATIONS : Short of breath. Evaluate for volume overload per order. MEDICAL HISTORY : Diabetes mellitus type 2. Pancreatitis. Congestive heart failure.Hypertension. SURGICAL HISTORY : Splenectomy. Cholecystectomy.Umbilical hernia repair.Partial pancreas removed. ENCOUNTER: Subsequent ACUITY: 1 week PAIN SCORE: 0/10 LOCATION: Bilateral chest FINDINGS: The NG tube is in good position. The lungs are clear. The heart is normal in size. The bony structure s are grossly intact. CONCLUSION: 1. No acute cardiopulmonary findings identified. No findings to indicate CHF. Alfonso Warner MD on July 28, 2016 at 9:27 Board Certified Radiologist. This report was verified electronically.
--- NOTE | 2016-07-28 09:31 | RADRPT ---
EXAM DATE/TIME: 07/28/2016 09:02 [facility] COMPARISON: CHEST PA & LAT, July 28, 2016, 8:55. INDICATIONS : Vomiting and abdomen pain for 1 week. MEDICAL HISTORY : Diabetes mellitus type 2. Pancreatitis. Congestive heart failure.Hypertension. SURGICAL HISTORY : Splenectomy. Cholecystectomy.Umbilical hernia repair.Partial pancreas removed. ENCOUNTER: Subsequent ACUITY: 1 week PAIN SCORE: 5/10 LOCATION: Abdomen, upper quadrant. FINDINGS: The bowel gas pattern is within normal limits. The patient is post hernia repair there is atheroscler otic plaquing involving the iliac vessels bilaterally. No abnormal calcifications are seen. The visualized bony structures are grossly intact. CONCLUSION: 1. Post surgical changes. No findings to indicate bowel obstruction. Alfonso Warner MD on July 28, 2016 at 9:29 Board Certified Radiologist. This report was verified electronically.
[2016-07-28] MEDS ORDERED: DIATRIZOATE MEGLUM/DIATRIZOATE SOD 120 ML BTL (for RAD DIAG) NG ONE (09:53)
--- NOTE | 2016-07-28 11:07 | RADRPT ---
EXAM DATE/TIME: 07/28/2016 09:02 [facility] COMPARISON: No previous studies available for comparison. INDICATIONS : Vomiting and abdominal pain for 1 week. FLUORO TIME: 3.4 minutes IMAGE COUNT: 21 CONTRAST: [facility] IMAGING TIME(S): 15 min, 30 min, 45 min MEDICAL HISTORY : Diabetes mellitus type 2. Pancreatitis. Congestive heart failure.Hypertension. SURGICAL HISTORY : Splenectomy. Cholecystectomy.Umbilical hernia repair.Partial pancreas removed. ENCOUNTER: Subsequent ACUITY: 1 week PAIN SCORE: 4/10 LOCATION: Abdomen, upper quadrant. FINDINGS: Gastrografin GI series and follow-through was performed through the NG tube. The stomach is distended with residual fluid and debris present. There is some gastroparesis. No gastric outlet obstruction. There is normal progression of Gastrografin through the small bowel with contrast reaching the colon by 45 minutes. There is no small bowel obstruction. CONCLUSION: 1. Distended stomach with probable gastroparesis. No small bowel obstruction or dilatation. Visualize d portions of the esophagus are unremarkable. Jose Enrique Ram MD on July 28, 2016 at 10:59 Board Certified Radiologist. This report was verified electronically.
[2016-07-28] MEDS ORDERED: MAGNESIUM CITRATE SOLN 300 ML BTL PO ONE ×2 (12:00→18:00)
--- NOTE | 2016-07-28 15:26 | HHI.PR ---
Subjective Remarks Pt has had three BMs since coming back from UGI series He has 200mL in NGT canister currently of dark colored fluid. Objective Vitals Vital Signs Date Time Temp Pulse Resp B/P Pulse Ox O2 Delivery O2 Flow Rate FiO2 07/28/16 08:23 100 Nasal Cannula 2.00 07/28/16 08:00 99 07/28/16 08:00 97.8 83 18 133/70 100 07/28/16 07:42 18 07/28/16 04:00 97.4 90 20 142/73 95 07/28/16 00:00 98.4 95 18 130/67 100 07/27/16 20:52 97.9 118 16 133/80 99 07/27/16 20:00 98 07/27/16 19:37 99 Nasal Cannula 3.00 07/27/16 17:00 98.4 98 20 110/68 94 07/27/16 16:40 99.3 89 20 128/75 96 Nasal Cannula 3 07/27/16 16:30 89 20 128/75 96 Nasal Cannula 3 07/27/16 16:15 92 20 132/76 95 Nasal Cannula 3 07/27/16 16:00 91 20 131/76 95 Nasal Cannula 3 07/27/16 15:45 103 20 109/72 96 Nasal Cannula 3 07/27/16 15:40 99.3 102 22 133/72 96 Nasal Cannula 3 07/27/16 07/27/16 07/28/16 14:59 22:59 06:59 Intake Total 0 ml 1332 ml 695 ml Output Total 850 ml 100 ml 400 ml Balance -850 ml 1232 ml 295 ml Intake Oral 0 ml 0 ml IV Total 1032 ml 695 ml Other 300 ml Output Urine Total 800 ml 300 ml Gastric Drainage Total 50 ml 100 ml 100 ml # Bowel Movements 0 0 Result Diagram: 07/28/16 0524 07/28/16523 Other Results Laboratory Tests Test 07/27/16 07/28/16 05:11 05:24 White Blood Count 18.9 TH/MM3 14.5 TH/MM3 Red Blood Count 2.63 MIL/MM3 2.42 MIL/MM3 Hemoglobin 8.7 GM/DL 7.9 GM/DL Hematocrit 25.5 % 23.7 % Mean Corpuscular Volume 97.2 FL 97.7 FL Mean Corpuscular Hemoglobin 33.0 PG 32.4 PG Mean Corpuscular Hemoglobin 33.9 % 33.2 % Concent Red Cell Distribution Width 13.6 % 13.9 % Platelet Count 180 TH/MM3 167 TH/MM3 Mean Platelet Volume 9.6 FL 10.1 FL Neutrophils (%) (Auto) 70.4 % 71.5 % Lymphocytes (%) (Auto) 13.7 % 11.9 % Monocytes (%) (Auto) 15.5 % 13.9 % Eosinophils (%) (Auto) 0.1 % 2.2 % Basophils (%) (Auto) 0.3 % 0.5 % Neutrophils # (Auto) 13.3 TH/MM3 10.4 TH/MM3 Lymphocytes # (Auto) 2.6 TH/MM3 1.7 TH/MM3 Monocytes # (Auto) 2.9 TH/MM3 2.0 TH/MM3 Eosinophils # (Auto) 0.0 TH/MM3 0.3 TH/MM3 Basophils # (Auto) 0.1 TH/MM3 0.1 TH/MM3 CBC Comment AUTO DIFF DIFF FINAL Differential Comment AUTO DIFF CONFIRMED Platelet Estimate NORMAL Platelet Morphology Comment NORMAL Acanthocytes OCC Sodium Level 133 MEQ/L 135 MEQ/L Potassium Level 4.2 MEQ/L 4.0 MEQ/L Chloride Level 96 MEQ/L 99 MEQ/L Carbon Dioxide Level 28.0 MEQ/L 27.4 MEQ/L Anion Gap 9 MEQ/L 9 MEQ/L Blood Urea Nitrogen 32 MG/DL 22 MG/DL Creatinine 0.89 MG/DL 0.78 MG/DL Estimat Glomerular Filtration 87 ML/MIN 101 ML/MIN Rate Random Glucose 136 MG/DL 108 MG/DL Calcium Level 7.8 MG/DL 7.9 MG/DL Phosphorus Level 2.9 MG/DL Magnesium Level 1.4 MG/DL 2.0 MG/DL Imaging Last Impressions Chest X-Ray 07/26/16 1143 Signed Impressions: Service Date/Time: Tuesday, July 26, 2016 12:07 - CONCLUSION: No acute disease. Gage Mcclain MD Abdomen/Pelvis CT 07/26/16 1143 Signed Impressions: Service Date/Time: Tuesday, July 26, 2016 13:14 - CONCLUSION: 1. Extensive postsurgical changes to the upper abdomen. 2. The stomach is abnormal with abnormal gastric wall thickening seen circumferentially with proximal gastric distention. Adjacent stranding and fluid suggest inflammatory process however malignancy is not excluded. 3. Atherosclerotic disease and mild ectasia of the infrarenal abdominal aorta. 4. Esophageal wall thickening seen circumferentially. Gage Mcclain MD Objective Remarks General: NAD, AAOx3. Cardiac: Regular. Chest: wheezing at right lung base Abd: +BS, soft ND/NT Ext: No edema. 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 - Pt still drinks daily EtOH. - Pt admitted on Jul 19 with abd pain/distension after eating with n/v with brown emesis. Prior to admission his last BM was 4 or 5 days prior and little flatus. - He presents dehydrated with hyponatremia and sinus tachycardia. - CT imaging shows circumferentially thickened esophagus and thick walled stomach fluid around stomach and distention with fluid level in stomach.....?partial obstruction. ?progressive GOO change. - Radiology not able to r/o tumor of upper gastrointestinal tract. His wbc is 20K. - GI evaluated and pt underwent evaluation with EGD on 07/27/16. Per verbal report by Dr. Dickens the pt had multiple small ulcers and there was a lot of blood int he stomach and the duodenum was unable to be visualized. - ED discussed with gen surg and no acute indication for surgery. - UGI with SB series with noted distended stomach but no evidence of obstruction. - NGT - IVF - Await pathology from stomach biopsies. - Cont. Zofran - Cont. Protonix - continue NPO for now - Monitor H/H and transfuse as necessary (2) N&V (nausea and vomiting) Status: Acute Plan: see above (3) Chronic pancreatitis Status: Chronic Plan: see above (4) HTN (hypertension) Status: Acute Plan: - stable - coreg (5) Diabetes Status: Acute Plan: - normoglycemic since admission - med rec sheet shows NO DM medications (6) Hyponatremia Status: Acute (7) CHF (congestive heart failure) Status: Acute Assessment and Plan Patient examined. Assessment and plan formulated with Tanika Matos PA-C. I agree with the above. Problem Qualifiers (1) Abdominal pain: Qualified Code: R10.10 - Pain of upper abdomen (2) N&V (nausea and vomiting): Qualified Code: R11.2 - Nausea and vomiting, intractability of vomiting not specified, unspecified vomiting type (3) Chronic pancreatitis: Qualified Code: K86.1 - Chronic pancreatitis, unspecified pancreatitis type (4) HTN (hypertension): Qualified Code: I10 - Essential hypertension (5) Diabetes: Qualified Code: E11.8 - Type 2 diabetes mellitus with complication, without long-term current use of insulin Tanika Matos Jul 28, 2016 15:26 Yuniel Ramos DO Jul 30, 2016 13:58
[2016-07-28 16:34] LABS: HEMOGLOBIN Ao 84.3 %; HEMOGLOBIN LA1C 1.9 %; HEMOGLOBIN P3 3.7 %
[2016-07-28] MEDS: BISACODYL EC 5 MG TABEC PO SCH ×2 (17:09→19:57)
[2016-07-28] MEDS: LACTATED RINGER'S 1000 ML IV SCH (19:57)
[2016-07-29] MEDS: INSULIN ASPART SUPPLEMENTAL SCALE SQ SCH ×7 (01:01→23:46)
[2016-07-29] MEDS: PANTOPRAZOLE SODIUM 40 MG VIAL IV PUSH SCH ×2 (07:53→20:05)
[2016-07-29] MEDS: CARVEDILOL 3.125 MG TAB PO SCH ×2 (07:54→20:06)
[2016-07-29 08:00] VITALS: BP 142/81; PULSE 79; RESP 16; TEMP 96.6; O2SAT 100
[2016-07-29] MEDS: SODIUM CHLOR 0.9% 1000 ML INJ 1,000 ML IV SCH ×2 (08:52→23:00)
[2016-07-29 09:30] VITALS: O2SAT 99
[2016-07-29] MEDS: RESP: ALBUTEROL 2.5 MG/IPRATROPIUM 0.5 MG NEB (SCH) NEB ×3 (09:30→19:58)
[2016-07-29 12:00] VITALS: BP 136/67; PULSE 89; RESP 17; TEMP 98.3; O2SAT 98
--- NOTE | 2016-07-29 13:13 | HHI.PR ---
Subjective Remarks Pt reports that overall he is feeling better today He had 5 BMs yesterday, none since last night. Pt has about 525cc of fluid in the NGT canister He has been eating ice chips all morning. Objective Vitals Vital Signs Date Time Temp Pulse Resp B/P Pulse Ox O2 Delivery O2 Flow Rate FiO2 07/29/16 09:30 99 Nasal Cannula 2.00 07/29/16 08:00 96.6 79 16 142/81 100 07/28/16 23:57 98.4 89 18 154/75 100 07/28/16 20:00 97.8 92 18 157/69 100 07/28/16 16:00 97.8 104 20 121/70 99 07/28/16 07/28/16 07/29/16 14:59 22:59 06:59 Intake Total 0 ml 848 ml 759 ml Output Total 850 ml 850 ml 850 ml Balance -850 ml -2 ml -91 ml Intake Oral 0 ml 0 ml 0 ml IV Total 848 ml 759 ml Output Urine Total 800 ml 250 ml 300 ml Gastric Drainage Total 50 ml 600 ml 550 ml # Bowel Movements 4 0 1 Result Diagram: 07/28/16 0524 07/28/16 0524 Other Results Laboratory Tests Test 07/28/16 05:24 White Blood Count 14.5 TH/MM3 Red Blood Count 2.42 MIL/MM3 Hemoglobin 7.9 GM/DL Hematocrit 23.7 % Mean Corpuscular Volume 97.7 FL Mean Corpuscular Hemoglobin 32.4 PG Mean Corpuscular Hemoglobin 33.2 % Concent Red Cell Distribution Width 13.9 % Platelet Count 167 TH/MM3 Mean Platelet Volume 10.1 FL Neutrophils (%) (Auto) 71.5 % Lymphocytes (%) (Auto) 11.9 % Monocytes (%) (Auto) 13.9 % Eosinophils (%) (Auto) 2.2 % Basophils (%) (Auto) 0.5 % Neutrophils # (Auto) 10.4 TH/MM3 Lymphocytes # (Auto) 1.7 TH/MM3 Monocytes # (Auto) 2.0 TH/MM3 Eosinophils # (Auto) 0.3 TH/MM3 Basophils # (Auto) 0.1 TH/MM3 CBC Comment DIFF FINAL Differential Comment Sodium Level 135 MEQ/L Potassium Level 4.0 MEQ/L Chloride Level 99 MEQ/L Carbon Dioxide Level 27.4 MEQ/L Anion Gap 9 MEQ/L Blood Urea Nitrogen 22 MG/DL Creatinine 0.78 MG/DL Estimat Glomerular Filtration 101 ML/MIN Rate Random Glucose 108 MG/DL Hemoglobin A1c 6.7 % Calcium Level 7.9 MG/DL Magnesium Level 2.0 MG/DL Imaging Last Impressions Chest X-Ray 07/26/16 1143 Signed Impressions: Service Date/Time: Tuesday, July 26, 2016 12:07 - CONCLUSION: No acute disease. Gage Mcclain MD Abdomen/Pelvis CT 07/26/16 1143 Signed Impressions: Service Date/Time: Tuesday, July 26, 2016 13:14 - CONCLUSION: 1. Extensive postsurgical changes to the upper abdomen. 2. The stomach is abnormal with abnormal gastric wall thickening seen circumferentially with proximal gastric distention. Adjacent stranding and fluid suggest inflammatory process however malignancy is not excluded. 3. Atherosclerotic disease and mild ectasia of the infrarenal abdominal aorta. 4. Esophageal wall thickening seen circumferentially. Gage Mcclain MD Objective Remarks General: NAD, AAOx3. Cardiac: Regular. Chest: CTA Abd: +BS, soft ND/NT Ext: No edema. 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 - Pt still drinks daily EtOH. - Pt admitted on Jul 19 with abd pain/distension after eating with n/v with brown emesis. Prior to admission his last BM was 4 or 5 days prior and little flatus. - He presents dehydrated with hyponatremia and sinus tachycardia. - CT imaging shows circumferentially thickened esophagus and thick walled stomach fluid around stomach and distention with fluid level in stomach.....?partial obstruction. ?progressive GOO change. - Radiology not able to r/o tumor of upper gastrointestinal tract. His wbc is 20K. - GI evaluated and pt underwent evaluation with EGD on 07/27/16. Per verbal report by Dr. Dickens the pt had multiple small ulcers and there was a lot of blood int he stomach and the duodenum was unable to be visualized. - ED discussed with gen surg and no acute indication for surgery. - UGI with SB series with noted distended stomach but no evidence of obstruction. - NGT had out about 1200mL of gastric drainage yesterday - IVF - Pathology from stomach biopsies were called to Dr. Ramos from pathology which reportedly indicated NO evidence of malignancy, noted ulcerated duodenal mucosa, no evidence of H. pylori. - Pt had 5 BMs yesterday after UGI series. - Cont. Zofran - Cont. Protonix - Clamp NGT and trial of clear liquids this evening. - Await repeat H/H for today - Recheck labs in AM - DVT prophylaxis with SCDs (2) N&V (nausea and vomiting) Status: Acute Plan: see above (3) Chronic pancreatitis Status: Chronic Plan: see above (4) HTN (hypertension) Status: Acute Plan: - stable - coreg (5) Diabetes Status: Acute Plan: - normoglycemic since admission - med rec sheet shows NO DM medications (6) Hyponatremia Status: Acute (7) CHF (congestive heart failure) Status: Acute Assessment and Plan Patient examined. Assessment and plan formulated with Tanika Matos PA-C. I agree with the above. Problem Qualifiers (1) Abdominal pain: Qualified Code: R10.10 - Pain of upper abdomen (2) N&V (nausea and vomiting): Qualified Code: R11.2 - Nausea and vomiting, intractability of vomiting not specified, unspecified vomiting type (3) Chronic pancreatitis: Qualified Code: K86.1 - Chronic pancreatitis, unspecified pancreatitis type (4) HTN (hypertension): Qualified Code: I10 - Essential hypertension (5) Diabetes: Qualified Code: E11.8 - Type 2 diabetes mellitus with complication, without long-term current use of insulin Tanika Matos Jul 29, 2016 13:12 Yuniel Ramos DO Jul 30, 2016 13:59
[2016-07-29 15:02] LABS: AUTOMATED NEUTROPHIL # 8.8 TH/MM3 (1.8-7.7); BASOPHIL % 0.3 % (0.0-2.0); EOSINOPHIL # 0.1 TH/MM3 (0-0.4); EOSINOPHIL % 1.2 % (0.0-4.0); HEMATOCRIT 25.3 % (39.0-51.0); HEMO FLAGS DIFF FINAL; LYMPH % 9.5 % (9.0-44.0); LYMPHOCYTE # 1.1 TH/MM3 (1.0-4.8); MEAN CELL VOLUME 99.4 FL (80.0-100.0); MEAN CORPUSCULAR HEMOGLOBIN 32.3 PG (27.0-34.0); MEAN CORPUSCULAR HGB CONC 32.6 % (32.0-36.0); PLATELET COUNT 214 TH/MM3 (150-450); RED BLOOD COUNT 2.55 MIL/MM3 (4.50-5.90); RED CELL DISTRIBUTION WIDTH 13.9 % (11.6-17.2); WHITE BLOOD COUNT 11.3 TH/MM3 (4.0-11.0)
[2016-07-29 16:00] VITALS: BP 151/70; PULSE 87; RESP 18; TEMP 96.7; O2SAT 99
[2016-07-29 19:58] VITALS: O2SAT 98
[2016-07-29 20:00] VITALS: BP 146/70; PULSE 90; RESP 18; TEMP 98.1; O2SAT 100
[2016-07-29] MEDS: LACTATED RINGER'S 1000 ML IV SCH (22:30)
[2016-07-30] VITALS (12 sets, daily range): BP systolic 128–159; BP diastolic 56–77; PULSE 70–92; RESP 16–20; TEMP 96.5–98.7; O2SAT 92–100
[2016-07-30] MEDS: INSULIN ASPART SUPPLEMENTAL SCALE SQ SCH ×5 (04:00→20:14)
[2016-07-30 06:13] LABS: AUTOMATED NEUTROPHIL # 6.7 TH/MM3 (1.8-7.7); BASOPHIL # 0.1 TH/MM3 (0-0.2); BASOPHIL % 0.8 % (0.0-2.0); EOSINOPHIL # 0.5 TH/MM3 (0-0.4); EOSINOPHIL % 4.3 % (0.0-4.0); HEMO FLAGS DIFF FINAL; LYMPH % 19.9 % (9.0-44.0); LYMPHOCYTE # 2.3 TH/MM3 (1.0-4.8); MEAN CELL VOLUME 97.3 FL (80.0-100.0); MEAN CORPUSCULAR HEMOGLOBIN 32.3 PG (27.0-34.0); MEAN CORPUSCULAR HGB CONC 33.2 % (32.0-36.0); MONO % 16.6 % (0.0-8.0); NEUT % 58.4 % (16.0-70.0); PLATELET COUNT 200 TH/MM3 (150-450); RED BLOOD COUNT 2.26 MIL/MM3 (4.50-5.90); RED CELL DISTRIBUTION WIDTH 13.7 % (11.6-17.2); WHITE BLOOD COUNT 11.4 TH/MM3 (4.0-11.0)
[2016-07-30 06:27] LABS: BICARBONATE 25.4 MEQ/L (21.0-32.0); MAGNESIUM 1.7 MG/DL (1.5-2.5); POTASSIUM 3.7 MEQ/L (3.5-5.1)
[2016-07-30] MEDS: RESP: ALBUTEROL 2.5 MG/IPRATROPIUM 0.5 MG NEB (SCH) NEB ×3 (07:43→21:18)
[2016-07-30] MEDS: PANTOPRAZOLE SODIUM 40 MG VIAL IV PUSH SCH (08:15)
[2016-07-30] MEDS: CARVEDILOL 3.125 MG TAB PO SCH ×2 (08:19→20:10)
[2016-07-30] MEDS: SODIUM CHLOR 0.9% 1000 ML INJ 1,000 ML IV SCH (13:16)
--- NOTE | 2016-07-30 13:48 | HHI.PR ---
Subjective Remarks Pt doing well today. Tolerating clear liquid diet well and wants NGT out Denies any increased weakness, SOB, or palpitations. He denies any melanotic stool or BRBPR. He has been having loose dark brown stools Objective Vitals Vital Signs Date Time Temp Pulse Resp B/P Pulse Ox O2 Delivery O2 Flow Rate FiO2 07/30/16 12:00 96.5 70 16 146/68 96 07/30/16 08:00 96.9 77 17 144/67 92 07/30/16 07:45 100 Nasal Cannula 2.00 07/30/16 00:00 98.6 92 18 128/56 94 07/29/16 20:00 98.1 90 18 146/70 100 07/29/16 19:58 98 Nasal Cannula 2.00 07/29/16 16:00 96.7 87 18 151/70 99 07/29/16 07/29/16 07/30/16 15:00 23:00 07:00 Intake Total 0 ml 388 ml 542 ml Output Total 1200 ml 300 ml 300 ml Balance -1200 ml 88 ml 242 ml Intake Oral 0 ml 0 ml 0 ml IV Total 388 ml 542 ml Output Urine Total 550 ml 300 ml 300 ml Gastric Drainage Total 650 ml # Bowel Movements 0 0 1 Result Diagram: 07/30/16 0548 07/30/16 0548 Other Results Laboratory Tests Test 07/29/16 07/30/16 13:54 05:48 White Blood Count 11.3 TH/MM3 11.4 TH/MM3 Red Blood Count 2.55 MIL/MM3 2.26 MIL/MM3 Hemoglobin 8.3 GM/DL 7.3 GM/DL Hematocrit 25.3 % 22.0 % Mean Corpuscular Volume 99.4 FL 97.3 FL Mean Corpuscular Hemoglobin 32.3 PG 32.3 PG Mean Corpuscular Hemoglobin 32.6 % 33.2 % Concent Red Cell Distribution Width 13.9 % 13.7 % Platelet Count 214 TH/MM3 200 TH/MM3 Mean Platelet Volume 10.1 FL 9.6 FL Neutrophils (%) (Auto) 78.0 % 58.4 % Lymphocytes (%) (Auto) 9.5 % 19.9 % Monocytes (%) (Auto) 11.0 % 16.6 % Eosinophils (%) (Auto) 1.2 % 4.3 % Basophils (%) (Auto) 0.3 % 0.8 % Neutrophils # (Auto) 8.8 TH/MM3 6.7 TH/MM3 Lymphocytes # (Auto) 1.1 TH/MM3 2.3 TH/MM3 Monocytes # (Auto) 1.2 TH/MM3 1.9 TH/MM3 Eosinophils # (Auto) 0.1 TH/MM3 0.5 TH/MM3 Basophils # (Auto) 0.0 TH/MM3 0.1 TH/MM3 CBC Comment DIFF FINAL DIFF FINAL Differential Comment Sodium Level 139 MEQ/L Potassium Level 3.7 MEQ/L Chloride Level 103 MEQ/L Carbon Dioxide Level 25.4 MEQ/L Anion Gap 11 MEQ/L Blood Urea Nitrogen 10 MG/DL Creatinine 0.66 MG/DL Estimat Glomerular Filtration 122 ML/MIN Rate Random Glucose 122 MG/DL Calcium Level 8.2 MG/DL Magnesium Level 1.7 MG/DL Imaging Last Impressions Chest X-Ray 07/26/16 1143 Signed Impressions: Service Date/Time: Tuesday, July 26, 2016 12:07 - CONCLUSION: No acute disease. Gage Mcclain MD Abdomen/Pelvis CT 07/26/16 1143 Signed Impressions: Service Date/Time: Tuesday, July 26, 2016 13:14 - CONCLUSION: 1. Extensive postsurgical changes to the upper abdomen. 2. The stomach is abnormal with abnormal gastric wall thickening seen circumferentially with proximal gastric distention. Adjacent stranding and fluid suggest inflammatory process however malignancy is not excluded. 3. Atherosclerotic disease and mild ectasia of the infrarenal abdominal aorta. 4. Esophageal wall thickening seen circumferentially. Gage Mcclain MD Objective Remarks General: NAD, AAOx3. Cardiac: Regular. Chest: CTA Abd: +BS, soft ND/NT Ext: No edema. 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 - Pt still drinks daily EtOH. - Pt admitted on Jul 19 with abd pain/distension after eating with n/v with brown emesis. Prior to admission his last BM was 4 or 5 days prior and little flatus. - He presents dehydrated with hyponatremia and sinus tachycardia. - CT imaging shows circumferentially thickened esophagus and thick walled stomach fluid around stomach and distention with fluid level in stomach.....?partial obstruction. ?progressive GOO change. - Radiology not able to r/o tumor of upper gastrointestinal tract. His wbc is 20K. - GI evaluated and pt underwent evaluation with EGD on 07/27/16. Per verbal report by Dr. Dickens the pt had multiple small ulcers and there was a lot of blood int he stomach and the duodenum was unable to be visualized. - ED discussed with gen surg and no acute indication for surgery. - UGI with SB series with noted distended stomach but no evidence of obstruction. - Pathology from stomach biopsies were called to Dr. Ramos from pathology which reportedly indicated NO evidence of malignancy, noted ulcerated duodenal mucosa, no evidence of H. pylori. - Pt had 5 BMs after UGI series and has been moving his bowels last night and today. - Cont. Zofran - Cont. Protonix, change to po Q12H - Remove NGT and advance diet as tolerated - Repeat H/H today with Hgb 7.3 - Discussed with the pt need for blood transfusion - Recheck labs in AM - DVT prophylaxis with SCDs (2) N&V (nausea and vomiting) Status: Acute Plan: see above (3) Chronic pancreatitis Status: Chronic Plan: see above (4) HTN (hypertension) Status: Acute Plan: - stable - coreg (5) Diabetes Status: Acute Plan: - normoglycemic since admission - med rec sheet shows NO DM medications (6) Hyponatremia Status: Acute (7) CHF (congestive heart failure) Status: Acute Problem Qualifiers (1) Abdominal pain: Qualified Code: R10.10 - Pain of upper abdomen (2) N&V (nausea and vomiting): Qualified Code: R11.2 - Nausea and vomiting, intractability of vomiting not specified, unspecified vomiting type (3) Chronic pancreatitis: Qualified Code: K86.1 - Chronic pancreatitis, unspecified pancreatitis type (4) HTN (hypertension): Qualified Code: I10 - Essential hypertension (5) Diabetes: Qualified Code: E11.8 - Type 2 diabetes mellitus with complication, without long-term current use of insulin Tanika Matos Jul 30, 2016 13:48 Yuniel Ramos DO Jul 31, 2016 12:01
[2016-07-30] MEDS: PANTOPRAZOLE SOD 40 MG DELAYED RELEASE TAB PO SCH (20:10)
[2016-07-31] VITALS: BP 161/78; PULSE 75; RESP 16; TEMP 97.9; O2SAT 95
[2016-07-31 00:50] VITALS: BP 155/80; PULSE 73; RESP 18; TEMP 98; O2SAT 96
[2016-07-31] MEDS: INSULIN ASPART SUPPLEMENTAL SCALE SQ SCH ×4 (04:00→12:04)
[2016-07-31 05:10] LABS: AUTOMATED NEUTROPHIL # 6.5 TH/MM3 (1.8-7.7); BASOPHIL # 0.1 TH/MM3 (0-0.2); BASOPHIL % 0.8 % (0.0-2.0); EOSINOPHIL # 0.5 TH/MM3 (0-0.4); EOSINOPHIL % 4.2 % (0.0-4.0); HEMATOCRIT 30.5 % (39.0-51.0); HEMO FLAGS DIFF FINAL; LYMPH % 24.2 % (9.0-44.0); LYMPHOCYTE # 2.9 TH/MM3 (1.0-4.8); MEAN CELL VOLUME 89.9 FL (80.0-100.0); MEAN CORPUSCULAR HEMOGLOBIN 30.9 PG (27.0-34.0); MEAN CORPUSCULAR HGB CONC 34.4 % (32.0-36.0); MONO % 16.1 % (0.0-8.0); NEUT % 54.7 % (16.0-70.0); PLATELET COUNT 214 TH/MM3 (150-450); RED BLOOD COUNT 3.39 MIL/MM3 (4.50-5.90); RED CELL DISTRIBUTION WIDTH 18.1 % (11.6-17.2); WHITE BLOOD COUNT 11.9 TH/MM3 (4.0-11.0)
[2016-07-31] MEDS: PANTOPRAZOLE SOD 40 MG DELAYED RELEASE TAB PO SCH (07:48)
[2016-07-31 08:00] VITALS: BP 151/79; PULSE 76; RESP 16; TEMP 97.7; O2SAT 94
[2016-07-31] MEDS: RESP: ALBUTEROL 2.5 MG/IPRATROPIUM 0.5 MG NEB (SCH) NEB ×2 (08:00→11:31)
[2016-07-31] MEDS: CARVEDILOL 3.125 MG TAB PO SCH (08:17)
[2016-07-31] MEDS ORDERED: PANT40TA3 PO (10:43)
--- NOTE | 2016-07-31 10:50 | HHI.DS ---
Discharge Summary Admission Date Jul 26, 2016 at 13:55 Discharge Date: Jul 31, 2016 Admitting Diagnosis abdominal source sepsis, gastric wall thickening (1) Abdominal pain Diagnosis: Principal (2) N&V (nausea and vomiting) Diagnosis: Secondary (3) Peptic ulcer disease with hemorrhage Diagnosis: Secondary (4) Chronic pancreatitis Diagnosis: Secondary (5) HTN (hypertension) Diagnosis: Secondary (6) Diabetes Diagnosis: Secondary (7) Hyponatremia Diagnosis: Secondary (8) CHF (congestive heart failure) Diagnosis: Secondary Consultants Dr. Bob Dickens - GI Procedures EGD on 07/27/16. Per verbal report by Dr. Dickens the pt had multiple small ulcers and there was a lot of blood int he stomach and the duodenum was unable to be visualized. CBC/BMP: 07/31/16 0423 07/30/16 0548 Significant Findings Laboratory Tests Test 07/29/16 07/30/16 07/31/16 13:54 05:48 04:23 White Blood Count 11.3 TH/MM3 11.4 TH/MM3 11.9 TH/MM3 (4.0-11.0) (4.0-11.0) (4.0-11.0) Red Blood Count 2.55 MIL/MM3 2.26 MIL/MM3 3.39 MIL/MM3 (4.50-5.90) (4.50-5.90) (4.50-5.90) Hemoglobin 8.3 GM/DL 7.3 GM/DL 10.5 GM/DL (13.0-17.0) (13.0-17.0) (13.0-17.0) Hematocrit 25.3 % 22.0 % 30.5 % (39.0-51.0) (39.0-51.0) (39.0-51.0) Neutrophils (%) (Auto) 78.0 % (16.0-70.0) Monocytes (%) (Auto) 11.0 % 16.6 % 16.1 % (0.0-8.0) (0.0-8.0) (0.0-8.0) Neutrophils # (Auto) 8.8 TH/MM3 (1.8-7.7) Monocytes # (Auto) 1.2 TH/MM3 1.9 TH/MM3 1.9 TH/MM3 (0-0.9) (0-0.9) (0-0.9) Eosinophils (%) (Auto) 4.3 % (0.0-4.0) 4.2 % (0.0-4.0) Eosinophils # (Auto) 0.5 TH/MM3 0.5 TH/MM3 (0-0.4) (0-0.4) Random Glucose 122 MG/DL (74-106) Calcium Level 8.2 MG/DL (8.5-10.1) Red Cell Distribution Width 18.1 % (11.6-17.2) Imaging Last Impressions Chest X-Ray 07/28/16 0800 Signed Impressions: Service Date/Time: Thursday, July 28, 2016 08:55 - CONCLUSION: 1. No acute cardiopulmonary findings identified. No findings to indicate CHF. Alfonso Warner MD Abdomen X-Ray 07/28/16 0800 Signed Impressions: Service Date/Time: Thursday, July 28, 2016 09:02 - CONCLUSION: 1. Post surgical changes. No findings to indicate bowel obstruction. Alfonso Warner MD Upper GI and Small Bowel X-Ray 07/28/16 0000 Signed Impressions: Service Date/Time: Thursday, July 28, 2016 09:02 - CONCLUSION: 1. Distended stomach with probable gastroparesis. No small bowel obstruction or dilatation. Visualized portions of the esophagus are unremarkable. Jose Enrique Ram MD Abdomen/Pelvis CT 07/26/16 1143 Signed Impressions: Service Date/Time: Tuesday, July 26, 2016 13:14 - CONCLUSION: 1. Extensive postsurgical changes to the upper abdomen. 2. The stomach is abnormal with abnormal gastric wall thickening seen circumferentially with proximal gastric distention. Adjacent stranding and fluid suggest inflammatory process however malignancy is not excluded. 3. Atherosclerotic disease and mild ectasia of the infrarenal abdominal aorta. 4. Esophageal wall thickening seen circumferentially. Gage Mcclain MD PE at Discharge General: NAD, AAOx3. Cardiac: Regular. Chest: CTA Abd: +BS, soft ND/NT Ext: No edema. 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 - Pt still drinks daily EtOH. - Pt admitted on Jul 19 with abd pain/distension after eating with n/v with brown emesis. Prior to admission his last BM was 4 or 5 days prior and little flatus. - He presents dehydrated with hyponatremia and sinus tachycardia. - CT imaging shows circumferentially thickened esophagus and thick walled stomach fluid around stomach and distention with fluid level in stomach - Radiology not able to r/o tumor of upper gastrointestinal tract. His wbc was 20K. - ED discussed with gen surg and no acute indication for surgery. - GI evaluated and pt underwent evaluation with EGD on 07/27/16. Per verbal report by Dr. Dickens the pt had multiple small ulcers and there was a lot of blood in the stomach and the duodenum was unable to be visualized. - Pathology from stomach biopsies indicated NO evidence of malignancy, noted ulcerated duodenal mucosa, no evidence of H. pylori. - UGI with SB series on 07/28/16 with noted distended stomach but no evidence of obstruction. - Pt had 5 BMs after UGI series and has been moving his bowels since then. - NGT removed on 07/30/16 and diet advanced and he tolerated this well - Cont. Protonix 40mg po Q12H - Repeat H/H on 07/30/14 with a decrease in Hgb to 7.3. Pt received 2 units PRBCs with improvement in his H/H to 10.5/30.5 on the day of discharge. - Pt will need to followup with [facility] as he will likely need repeat EGD for further evaluation. - Pt will continue his Protonix 40mg po BID - Alcohol cessation - He will need to followup with his PCP, Dr. Shawn Schmitz, in 1 week HTN - Pts BP remained relatively stable during admission on just his Coreg - He will be resumed on his Lisinopril at discharge as well as his BP did start elevating on the day of discharge. Diabetes - Hgb A1C 6.7% - normoglycemic since admission - med rec sheet shows NO DM medications Pt Condition on Discharge: Stable Discharge Disposition: Discharge Home Discharge Instructions DIET: Follow Instructions for: Diabetic Diet Activities you can perform: Regular-No Restrictions Follow up Referrals: Gastroenterology - 2 Weeks with Ashish Mendez MD PCP Follow-up - [address] Shawn Schmitz New Medications: Pantoprazole (Pantoprazole) 40 Mg Tab 40 MG PO Q12HR PUD #62 TAB Continued Medications: Carvedilol (Carvedilol) 3.125 Mg Tab 3.125 MG PO BID #60 Ref 0 TAB Lisinopril-Hctz (Lisinopril-Hctz) 20-12.5 Mg Tab 1 TAB PO DAILY Blood Pressure Management #30 Ref 0 TAB Lovastatin (Lovastatin) 10 Mg Tab 10 MG PO DAILY Cholesterol Management #30 Ref 0 TAB Multiple Vitamins W/ Minerals (Multivitamin Adults) 1 Tab 1 TAB PO DAILY Nutritional Supplement Ref 0 TAB Pancrelipase (Creon) 24,000-76,000-120,000 Units Cap 1 CAP PO TIDPC Digestive Aid #90 Ref 0 CAP Discontinued Medications: Ascorbic Acid (Vitamin C) 500 Mg Cap 500 MG PO DAILY Nutritional Supplement Ref 0 CAP Thiamine (Vitamin B-1) 50 Mg Tab 50 MG PO DAILY Nutritional Supplement Ref 0 TAB ([Eucenicea]) Additional Information Patient examined. Assessment and plan formulated with Tanika Matos PA-C. I agree with the above. Tanika Matos Jul 31, 2016 10:50 Yuniel Ramos DO Jul 31, 2016 12:02
--- NOTE | 2016-07-31 11:09 | HHI.DCPOC ---
Discharge Care Plan Diagnosis: (1) Abdominal pain (2) Peptic ulcer disease with hemorrhage (3) Chronic pancreatitis (4) Hyponatremia (5) N&V (nausea and vomiting) (6) Diabetes (7) HTN (hypertension) Goals to Promote Your Health * To prevent worsening of your condition and complications - Pt will need to followup with [facility] as he will likely need repeat EGD for further evaluation. - Pt will continue his Protonix 40mg twice daily, take about 30 mins prior to eating - Alcohol cessation - He will need to followup with his PCP, Dr. Shawn Schmitz, in 1 week Directions to Meet Your Goals Take your medications as prescribed Follow your dietary instruction Follow activity as directed Keep your appointments as scheduled Take your immunizations and boosters as scheduled If your symptoms worsen call your PCP, if no PCP go to Urgent Care Center or Emergency Room Smoking is Dangerous to Your Health. Avoid second hand smoke Call the 24-hour hour crisis hotline for domestic abuse at Tanika Matos Jul 31, 2016 11:09 Yuniel Ramos DO Jul 31, 2016 12:02
[2016-07-31 11:55] VITALS: BP 158/79; PULSE 70; RESP 16; TEMP 96.2; O2SAT 96
== END 2016-07-31 12:31 | disposition home or self-care (01) | DRG 378 ==
LOC: NEPC 11:23 → NEDA 13:55 → N07B 17:54
PROVIDERS: ADMIT Hospitalist; ATTEND Hospitalist
PROC: 0DB68ZX Excision of Stomach, Via Natural or Artificial Opening Endoscopic, Diagnostic (ICD-10-PCS; principal; 2016-07-27 14:50)
PROC: 30233N1 Transfusion of Nonautologous Red Blood Cells into Peripheral Vein, Percutaneous Approach (ICD-10-PCS; 2016-07-30)
DX: K25.4 Chronic or unspecified gastric ulcer with hemorrhage (principal); I42.0 Dilated cardiomyopathy; E11.8 Type 2 diabetes mellitus with unspecified complications; K31.1 Adult hypertrophic pyloric stenosis; K86.1 Other chronic pancreatitis; E87.1 Hypo-osmolality and hyponatremia; R71.0 Precipitous drop in hematocrit; I11.0 Hypertensive heart disease with heart failure; I50.9 Heart failure, unspecified; K26.9 Duodenal ulcer, unspecified as acute or chronic, without hemorrhage or perforation; K20.9 Esophagitis, unspecified; E86.0 Dehydration; E78.5 Hyperlipidemia, unspecified; F10.10 Alcohol abuse, uncomplicated; F17.210 Nicotine dependence, cigarettes, uncomplicated; Z88.0 Allergy status to penicillin; Z79.4 Long term (current) use of insulin; Z90.81 Acquired absence of spleen
CPT/HCPCS: 36430; 71010; 71020; 74000; 74177; 74245; 80048; 80053; 81001; 82948; 83036; 83605; 83690; 83735; 84100; 85025; 86850; 86900; 86901; 86920; 87040; 88305; 88312; 93005; 94150; 94640; 94664; 96361; 96365; 96375; C9113; J1200; J1815; J2250; J2270; J2405; J2543; J2765; J3010; J3475; J7030; P9016; Q9963; Q9967